=== PATIENT | male | born 1995 | race Caucasian/White ===

== ENCOUNTER 2016-03-08 13:16 | Emergency (ER) | payer OTHER ==
[~2016-03-08 13:16] MED LIST: CLIN1CAP5 PO; ZOFR4TAB3 SL
[2016-03-08 13:32] VITALS: BP 117/55; PULSE 86; TEMP 97.9; O2SAT 99
[2016-03-08 14:15] VITALS: BP 124/76; PULSE 80; RESP 18; O2SAT 98
--- NOTE | 2016-03-08 14:22 | PD ---
HPI Chief Complaint: Syncope/Near-Syncope Time Seen by Provider: 14:19 Travel History International Travel<30 days: No Contact w/Intl Traveler<30days: No Traveled to known affect area: No History of Present Illness HPI Patient is a 20-year-old male who presents emergency Department were evaluation of a syncopal episode. 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 Patient states he was only out for a few seconds. He does endorse vomiting prior to passing out. He denies any shortness of breath or chest pain prior to the syncopal episode. He denies any headaches, nausea, chest pain, shortness of breath, abdominal pain, cramping. PFSH Past Medical History Blood Disorders: No Anxiety: No Depression: No Cardiovascular Problems: Yes (heart murmur followed by pcp) Diminished Hearing: No Gastrointestinal Disorders: No Immunizations Current: Yes ?: Not Past Surgical History Other Surgery: Yes (bilateral meniscus repair) Social History Alcohol Use: Yes (OCCAS) Tobacco Use: No Substance Use: No Allergies-Medications (Allergen,Severity, Reaction): Coded Allergies: Vancomycin (Verified Allergy, Severe, ITCHING, 03/08/16) Reported Meds & Prescriptions Reported Meds & Active Scripts Active Zofran ODT (Ondansetron HCl) 4 Mg Tab 4 Mg SL Q6H PRN FOR NAUSEA/VOMITING Clindamycin Hcl (Clindamycin HCl) 150 Mg Cap 300 Mg PO TID 10 Days Review of Systems Except as stated in HPI: all other systems reviewed are Neg Physical Exam Narrative GENERAL: Well-developed, well-nourished, alert male. Resting comfortably in no acute distress. SKIN: Warm and dry. HEAD: Atraumatic. Normocephalic. EYES: Pupils equal and round. No scleral icterus. No injection or drainage. ENT: No nasal bleeding or discharge. Mucous membranes pink and moist. NECK: Trachea midline. No JVD. CARDIOVASCULAR: Regular rate and rhythm. No murmur appreciated. RESPIRATORY: No accessory muscle use. Clear to auscultation. Breath sounds equal bilaterally. GASTROINTESTINAL: Abdomen soft, non-tender, nondistended. Hepatic and splenic margins not palpable. MUSCULOSKELETAL: No obvious deformities. No clubbing. No cyanosis. No edema. NEUROLOGICAL: Awake and alert. No obvious cranial nerve deficits. Motor grossly within normal limits. Normal speech. PSYCHIATRIC: Appropriate mood and affect; insight and judgment normal. Data Data Last Documented VS Vital Signs Date Time Temp Pulse Resp B/P Pulse Ox O2 Delivery O2 Flow Rate FiO2 03/08/16 16:09 58 16 110/51 99 Room Air 03/08/16 13:32 97.9 Orders Electrocardiogram (03/08/16 ) Complete Blood Count With Diff (03/08/16 13:30) Comprehensive Metabolic Panel (03/08/16 13:30) Urinalysis - C+S If Indicated (03/08/16 13:30) Sodium Chlor 0.9% 1000 Ml Inj (Ns 1000 M (03/08/16 14:30) Urine Culture (03/08/16 14:09) Labs Laboratory Tests Test 03/08/16 03/08/16 03/08/16 14:09 14:12 16:30 Urine Color YELLOW Urine Turbidity HAZY Urine pH 5.5 Urine Specific [place] 1.018 Urine Protein 30 mg/dL Urine Glucose (UA) NEG mg/dL Urine Ketones TRACE mg/dL Urine Occult Blood SMALL Urine Nitrite NEG Urine Bilirubin NEG Urine Urobilinogen LESS THAN 2.0 MG/DL Urine Leukocyte Esterase NEG Urine RBC 2 /hpf Urine WBC 3 /hpf Urine Squamous Epithelial 1 /hpf Cells Urine Hyaline Casts 56 /lpf Urine Mucus FEW /lpf Microscopic Urinalysis Comment CULTURE INDICATED White Blood Count 13.7 TH/MM3 Red Blood Count 5.11 MIL/MM3 Hemoglobin 14.9 GM/DL Hematocrit 44.1 % Mean Corpuscular Volume 86.3 FL Mean Corpuscular Hemoglobin 29.2 PG Mean Corpuscular Hemoglobin 33.8 % Concent Red Cell Distribution Width 12.5 % Platelet Count 205 TH/MM3 Mean Platelet Volume 8.5 FL Neutrophils (%) (Auto) 84.9 % Lymphocytes (%) (Auto) 9.0 % Monocytes (%) (Auto) 5.4 % Eosinophils (%) (Auto) 0.3 % Basophils (%) (Auto) 0.4 % Neutrophils # (Auto) 11.6 TH/MM3 Lymphocytes # (Auto) 1.2 TH/MM3 Monocytes # (Auto) 0.7 TH/MM3 Eosinophils # (Auto) 0.0 TH/MM3 Basophils # (Auto) 0.1 TH/MM3 CBC Comment AUTO DIFF Differential Comment AUTO DIFF CONFIRMED Sodium Level 144 MEQ/L Potassium Level 4.2 MEQ/L Chloride Level 111 MEQ/L Carbon Dioxide Level 25.7 MEQ/L Anion Gap 7 MEQ/L Blood Urea Nitrogen 11 MG/DL Creatinine 0.94 MG/DL Estimat Glomerular Filtration 101 ML/MIN Rate Random Glucose 84 MG/DL Calcium Level 8.6 MG/DL Total Bilirubin 0.5 MG/DL Aspartate Amino Transf 13 U/L (AST/SGOT) Alanine Aminotransferase 25 U/L (ALT/SGPT) Alkaline Phosphatase 44 U/L Total Protein 7.0 GM/DL Albumin 4.1 GM/DL MDM Medical Decision Making Medical Screen Exam Complete: Yes Emergency Medical Condition: Yes Interpretation(s) Vital Signs Date Time Temp Pulse Resp B/P Pulse Ox O2 Delivery O2 Flow Rate FiO2 03/08/16 14:15 80 18 124/76 98 Room Air 03/08/16 14:15 78 20 98 Room Air 03/08/16 13:32 97.9 86 117/55 99 Differential Diagnosis Heat exhaustion versus vasovagal episode versus cardiac arrhythmia versus dehydration versus electrolyte abnormality versus other Narrative Course Patient is a 20-year-old male who presented to emergency department for evaluation after syncopal episode while 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 Patient appears well, his vital signs are stable, he is alert. Labs ordered and pending. EKG shows sinus rhythm with sinus arrhythmia, this is consistent with patient's history. CBC, chemistry unremarkable, urinalysis with trace ketones, small amount of occult blood. Urine culture is pending. We will defer treatment until culture results as patient is asymptomatic. He is vital signs are stable, he received 1 L of normal saline IV. He is neurologically intact. Patient is encouraged to follow-up with his primary doctor, maintain adequate fluid intake, return to emergency department for any new or worsening symptoms. Patient verbalized understanding of these instructions. Patient is stable for discharge. Diagnosis Primary Impression: Syncope Qualified Code: R55 - Syncope, unspecified syncope type Referrals: Primary Care Physician 2 days Patient Instructions: General Instructions, Syncope (ED) Additional Instructions: Follow-up with your primary doctor Maintain adequate fluid intake Return to emergency department for any new or worsening symptoms Med/Other Pt SpecificInfo: No Change to Meds Disposition: 01 DISCHARGE HOME Condition: Stable Mary [place] Mar 08, 2016 14:22
[2016-03-08] MEDS ORDERED: SODIUM CHLOR 0.9% 1000 ML INJ 1,000 ML IV ONE (14:30)
[2016-03-08 14:38] LABS: AUTOMATED NEUTROPHIL # 11.6 TH/MM3 (1.8-7.7); BASOPHIL # 0.1 TH/MM3 (0-0.2); BASOPHIL % 0.4 % (0.0-2.0); EOSINOPHIL % 0.3 % (0.0-4.0); HEMATOCRIT 44.1 % (39.0-51.0); LYMPHOCYTE # 1.2 TH/MM3 (1.0-4.8); MEAN CELL VOLUME 86.3 FL (80.0-100.0); MEAN CORPUSCULAR HEMOGLOBIN 29.2 PG (27.0-34.0); MEAN CORPUSCULAR HGB CONC 33.8 % (32.0-36.0); MONO % 5.4 % (0.0-8.0); NEUT % 84.9 % (16.0-70.0); PLATELET COUNT 205 TH/MM3 (150-450); RED BLOOD COUNT 5.11 MIL/MM3 (4.50-5.90); RED CELL DISTRIBUTION WIDTH 12.5 % (11.6-17.2); WHITE BLOOD COUNT 13.7 TH/MM3 (4.0-11.0)
[2016-03-08 14:40] LABS: HEMO FLAGS AUTO DIFF
[2016-03-08 14:46] LABS: BLOOD, URINE SMALL (NEG); COMMENT (UR) CULTURE INDICATED; CULTURE IF INDICATED CULTURE INDICATED; GLUCOSE,URINE NEG (NEG); HYALINE CAST, URINE 56 /lpf (RARE); KETONE, URINE TRACE mg/dL (NEG); MUCUS URINE FEW /lpf (OCC); NITRITE,URINE NEG (NEG); PH, URINE 5.5 (5.0-8.5); SQUAMOUS EPITHELIAL CELL URINE 1 /hpf (0-5); URINE COLOR YELLOW (YELLW/STRAW)
[2016-03-08 15:18] LABS: SCAN/DIFF AUTO DIFF CONFIRMED
[2016-03-08 16:09] VITALS: BP 110/51; PULSE 58; RESP 16; O2SAT 99
[2016-03-08 17:08] LABS: ALT (GPT) 25 U/L (12-78); ANION GAP 7 MEQ/L (5-15); AST (GOT) 13 U/L (15-37); BICARBONATE 25.7 MEQ/L (21.0-32.0); BLOOD UREA NITROGEN 11 MG/DL (7-18); CHLORIDE 111 MEQ/L (98-107); GLOMERULAR FILTRATION RATE 101 ML/MIN (>89); POTASSIUM 4.2 MEQ/L (3.5-5.1); SODIUM (NA) 144 MEQ/L (136-145)
[2016-03-08 17:10] VITALS: BP 114/67
[2016-03-08 17:10] LABS: ALKALINE PHOSPHATASE 44 U/L (45-117); TOTAL BILIRUBIN ADULT 0.5 MG/DL (0.2-1.0)
--- NOTE | 2016-03-09 21:20 | EKG ---
Date Performed: 03/08/2016 Time Performed: 12:58:38 PTAGE: 20 years EKG: Sinus rhythm WITH MARKED SINUS ARRHYTHMIA POSSIBLE LEFT ATRIAL ENLARGEMENT BORDERLINE ECG NO PREVIOUS TRACING DOCTOR: Imer Sepulveda Interpretating Date/Time 03/09/2016 21:10:40
== END 2016-03-08 17:52 | disposition home or self-care (01) ==
LOC: NEDAMB 13:16
DX: R55 Syncope and collapse (principal); R01.1 Cardiac murmur, unspecified; I49.8 Other specified cardiac arrhythmias; R82.90 Unspecified abnormal findings in urine
CPT/HCPCS: 80053; 81001; 85025; 87086; 93005; 96360; 99284; J7030

== ENCOUNTER 2016-07-07 10:12 | Day surgery (SDC) | payer OTHER ==
[~2016-07-07] VITALS: Ht 177.8 cm; Wt 85.7 kg
[2016-07-07] MEDS ORDERED: POVIDONE IODINE 5% (ANTISEPSIS KIT) 4 APPLICATIONS EACH NARE SCH (10:30)
[2016-07-07] MEDS ORDERED: NO Heparin, Lovenox, Coumadin at least 12 hours prior to procedure. PRN (10:30)
[2016-07-07] MEDS ORDERED: NS 1000 ML IV SCH (10:30)
[2016-07-07] MEDS ORDERED: Hold AM Insulin & AM Hypoglycemic medications in diabetic patients PRN (10:30)
[2016-07-07] MEDS ORDERED: CHLORHEXIDINE GLUCONATE 2 % 1 PACK (2 CLOTHS) TOPICAL SCH (10:30)
[2016-07-07 10:43] VITALS: BP 121/56; PULSE 68; RESP 18; TEMP 99.2; O2SAT 100
[2016-07-07] MEDS ORDERED: INSULIN HUMAN REGULAR 1,000 UNITS/10 ML VIAL SQ PRN (10:45)
[2016-07-07] MEDS ORDERED: CHLORHEXIDINE GLUCONATE 2 % 1 PACK (2 CLOTHS) TOPICAL PRN (10:45)
[2016-07-07] MEDS ORDERED: METOPROLOL TARTRATE 25 MG TAB PO PRN (10:45)
[2016-07-07] MEDS ORDERED: LACTATED RINGER'S 1000 ML IV PRN (10:45)
[2016-07-07] MEDS ORDERED: SODIUM CHLORID 0.9% 500 ML IV PRN (10:45)
[2016-07-07] MEDS ORDERED: POVIDONE IODINE 5% (ANTISEPSIS KIT) 4 APPLICATIONS EACH NARE PRN (10:45)
[2016-07-07 10:51] LABS: AUTOMATED NEUTROPHIL # 2.4 TH/MM3 (1.8-7.7); BASOPHIL % 0.6 % (0.0-2.0); EOSINOPHIL # 0.2 TH/MM3 (0-0.4); EOSINOPHIL % 4.3 % (0.0-4.0); HEMO FLAGS DIFF FINAL; LYMPH % 38.9 % (9.0-44.0); LYMPHOCYTE # 2.1 TH/MM3 (1.0-4.8); MEAN CORPUSCULAR HEMOGLOBIN 28.7 PG (27.0-34.0); MEAN CORPUSCULAR HGB CONC 33.3 % (32.0-36.0); MONO % 11.8 % (0.0-8.0); NEUT % 44.4 % (16.0-70.0); PLATELET COUNT 197 TH/MM3 (150-450); RED BLOOD COUNT 5.12 MIL/MM3 (4.50-5.90); RED CELL DISTRIBUTION WIDTH 12.5 % (11.6-17.2); WHITE BLOOD COUNT 5.4 TH/MM3 (4.0-11.0)
[2016-07-07 11:01] LABS: APTT (PATIENT) 29.1 SEC (24.3-30.1); PROTHROMBIN TIME - PATIENT 10.8 SEC (9.8-11.6)
[2016-07-07 11:14] LABS: BICARBONATE 29.2 MEQ/L (21.0-32.0)
[2016-07-07] MEDS ORDERED: ISOPROTERENOL HCL 1 MG/5 ML AMP ONE (12:52)
--- NOTE | 2016-07-07 13:37 | CATHPROC ---
[facility] Report Study Information Study Number Scheduled Start Study Start [id number] 07/07/2016 Jul 07 2016 12:50PM Referring Institution Admit Source Facility Department 1 Other [facility] - Engine Room Operator Physician and Clinical Staff Initial Latoya Phipps Mold Tooling Technician Michelle Abdul,WHARF LABORER TECH2 Other Anesthesia, NETWORK SECURITY ADMINISTRATOR Recorder Zainab Vizcaino,JASPAL Scrub Prema Krishna,RT(R) TECH2 Equipment Time Fraud Representative Description Size Mfg Part Number Used/Scraped [id number] 12:56 [employer] PACK, CCL CUSTOM * Used *[id number] 12:56 MEDLINE PACER EUBANKS, LIMB * 2530 Used [id number] 12:56 [employer],WARM AIR CCL * Used *[id number] 12:57 [employer] MED[employer] CATHETER, JSN, QUAD FR 5 Used *[id number] 12:57 [employer] MED[employer] CATHETER, JSN, QUAD FR 5 Used *[id number] 12:57 [employer] CATHETER, JSN, QUAD FR 5 Used *[id number] 12:57 [employer] MED[employer] CATHETER, JSN, QUAD FR 5 Used *[id number] 12:56 [employer] MED[employer] SHEATH, EPS, FR5 FAST CATH FR 5 Used *[id number] 12:56 [employer] SHEATH, EPS, FR5 FAST CATH FR 5 Used *[id number] 12:56 [employer] SHEATH, EPS, FR5 FAST CATH FR 5 Used *[id number] 12:56 [employer] MED[employer] SHEATH, EPS, FR6 FAST CATH FR 6 [id number] Used History: Risk Factors Family History of Hypertension Dyslipidemia Previous AL Previous Heart Failure Premature CAD No No No No No Prior Valve Prior PCI Prior CABG Surgery No No No Cerebrovascular Peripheral Artery Chronic Lung On Dialysis Diabetes Disease Disease Disease No No No No No Medication Medication Total Dose (Bolus/Oral) Medication Total Dosage/Unit 1% XYLOCAINE 20 mL Medications (Bolus/Oral) Medication Time Given Dosage/Unit Administered By Reason 1% XYLOCAINE 07/07/2016 1:07:23 PM 20 mL Latoya Weaver 20 mL 1% XYLOCAINE given in lab by Latoya Weaver in Right Groin via Subcutaneous. Medication (Drip) Medication Time Given Dosage/Unit Concentration/Unit Diluent (ml) Solution ISUPREL 07/07/2016 1:22:05 PM 4 mcg/min 1 mg 250 NaCl .9 4 mcg/min ISUPREL given in lab by Latoya Weaver in Right Antecubital via Peripheral IV. Pump/Drip Wilfrid w = 60 ml/hr using NaCl .9 with a concentration of 1 mg in 250 ml. Initial Case Assessment Cardiovascular HR Rhythm NIBP Chest Pain 61 SR 121/67 0 Edema Present Skin color Skin None Normal Warm Dry Circulatory - Right Pulses Dorsalis Pedis 2 Scale (0,1,2,3,4,d) Circulatory - Left Pulses Dorsalis Pedis 2 Scale (0,1,2,3,4,d) Neurological State Oriented to time-place- Alert Moves all extremities person Respiration - General Respiration Rate SpO2 (%) (B/min) 18 100 Chronological Log Time Study Chronological Log 12:30:00 Patient arrived via Bed. 12:30:01 Patient Name, D.O.B, / Armband Verified By R.N. Verbal Stimulation=~VERBAL~ Physical Stimulation=~PHYSICAL~ Airway=~AIRWAY~ Respiration=~RESPIR ATION~ 12:31:00 TOTAL=~TOTAL~. (0=absent, 1=limited, 2=present) 12:35:00 Patient has been NPO for More than 6Hrs. 12:35:00 Skin Breakdown- none per patient 12:35:00 Lizzy Prominences Protected 12:35:20 IV Warmer Connected To Patient. 12:36:00 Disposable Defibrillator Pads Placed On Patient. 12:40:12 Anesthesia at bedside. Assumes care of patient. 12:51:12 A # 20 IV was noted in the Antecubital (left). Grade = 0 12:51:21 A # 20 IV was noted in the Antecubital (right). Grade = 0 12:51:28 History and physical on the chart or being dictated. Assessment: Initial Case, HR=61 BPM, Rhythm=SR, YQOP=538/67 mmhg, Chest Pain=0, Edema=None, Col or=Normal, Skin = Warm, Dry Right Pulses: Trevor Ped=2 12:51:30 Left Pulses: Trevor Ped=2 Neurological: State=Alert, Ox3, MUNOZ Respiration: Resp=18 B/min, DpQ1=442 % 12:52:06 Table restraints applied according to hospital policy 12:52:07 Bilateral groins prepped with 2% chlorhexidine, and with a 3 min. waiting time. 12:52:10 paged 12:55:20 MD responded 12:55:27 Reference ECG taken Time Out. Correct patient, procedure, procedure equipment, site and side verified with physicia n present. Time 13:03:37 concurred by MD, individual staff and NETWORK SECURITY ADMINISTRATOR. Time Out #2 - Consents verified, patient in correct position, all results are labled and displa yed, safety precautions 13:03:42 taken, antibiotics administered. Time out concurred by MD, individual staff and NETWORK SECURITY ADMINISTRATOR in procedu re 13:04:48 Case Start 13:07:23 20 mL 1% XYLOCAINE given in lab by Latoya Weaver in Right Groin via Subcutaneous. 13:07:36 Vascular access was obtained in the Fem Vein (right). 13:07:40 Vascular access was obtained in the Fem Vein (right). 13:07:41 Vascular access was obtained in the Fem Vein (right). 13:07:41 Vascular access was obtained in the Fem Vein (right). 13:08:09 A SHEATH, EPS, FR5 FAST CATH FR 5 was advanced into the Fem Vein (right) using the Modified Seldinger technique. 13:08:18 A SHEATH, EPS, FR5 FAST CATH FR 5 was advanced into the Fem Vein (right) using the Modified Seldinger technique. 13:08:22 A SHEATH, EPS, FR5 FAST CATH FR 5 was advanced into the Fem Vein (right) using the Modified Seldinger technique. 13:08:25 A SHEATH, EPS, FR6 FAST CATH FR 6 was advanced into the Fem Vein (right) using the Modified Seldinger technique. A CATHETER, JSN, QUAD FR 5 was advanced vis Fem Vein (right) and placed in the CS. Placement wa s visually 13:09:39 confirmed under fluoroscopy. A CATHETER, JSN, QUAD FR 5 was advanced vis Fem Vein (right) and placed in the HIS. Placement w as visually 13:09:57 confirmed under fluoroscopy. A CATHETER, JSN, QUAD FR 5 was advanced vis Fem Vein (right) and placed in the HRA. Placement w as visually 13:10:02 confirmed under fluoroscopy. A CATHETER, JSN, QUAD FR 5 was advanced vis Fem Vein (right) and placed in the RVA. Placement w as visually 13:10:08 confirmed under fluoroscopy. 4 mcg/min ISUPREL given in lab by Latoya Weaver in Right Antecubital via Peripheral IV. Pump/Dr ip Flow = 60 ml/hr 13:22:05 using NaCl .9 with a concentration of 1 mg in 250 ml. 13:32:50 d/c isuprel 13:33:01 Catheter(s) removed without difficulty 13:34:00 Case End Sheath removed; pressure applied to access site. x 10 min patient tolerated well no s/sx of bl eeding or hematoma upon 13:35:18 delivery to docu 13:36:07 Sterile dressing applied to site 13:36:08 No case complications noted. 13:36:09 Cine recording checked. 13:36:10 Bedside Report will be given. 13:36:14 docu called. Spoke to Lulu 13:36:24 Defibrillator and ground pads removed. Skin intact. 13:46:25 [facility] Study - Contrast Media Used In Study Contrast Total Opened (mL) Total Used (mL) Total Wasted (mL) Unspecified 0 0 0 End Study - Radiation Exposure Fluoro Time (minutes) 1.8 End Study - Patient Disposition Complications Transferred To Interventional Outcome No Telemetry Bed successful
[2016-07-07] MEDS ORDERED: MIDAZOLAM HCL 2 MG/2 ML VIAL ONE (13:44)
[2016-07-07] MEDS ORDERED: PROPOFOL 200 MG/20 ML AMP IV PUSH ONE (13:45)
[2016-07-07] MEDS ORDERED: METOPROLOL TARTRATE 5 MG/5 ML VIAL ONE (13:53)
[2016-07-07] MEDS ORDERED: METOCLOPRAMIDE HCL 10 MG/2 ML VIAL IV PRN (14:00)
[2016-07-07] MEDS ORDERED: ONDANSETRON HCL 4 MG/2 ML VIAL IV PRN (14:00)
[2016-07-07] MEDS ORDERED: SODIUM CHLOR 0.9% 250 ML INJ 250 ML IV PRN (14:00)
[2016-07-07] MEDS ORDERED: ATROPINE SULFATE 1 MG/ML VIAL IV PRN (14:00)
[2016-07-07] MEDS ORDERED: LIDOCAINE HCL 1% 50 ML VIAL INFIL PRN (14:00)
[2016-07-07] MEDS ORDERED: oxyCODONE/ACETAMINOPHEN 5 MG/325 MG TAB PO PRN ×2 (14:00)
[2016-07-07] MEDS ORDERED: BACITRACIN OINT 0.9 GM PKT TOP ONE (14:00)
[2016-07-07] MEDS ORDERED: LORazepam 2 MG/ML VIAL IV PRN (14:00)
[2016-07-07] MEDS ORDERED: NO HOME MEDICATIONS (14:47)
--- NOTE | 2016-07-07 15:50 | MA ---
cc: REGINO GARCIA M.D. DATE: 07/07/2016 TYPE OF PROCEDURE: Electrophysiology study, CS cannulation repeated electrophysiology study on Isuprel infusion. 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 The risks, the nature and the benefit of the procedure are clearly stated to him. The risks include pneumothorax, cardiac perforation, stroke, need for open heart surgery and even . The patient understood and agreed to proceed. PROCEDURE After written informed consent was obtained, the patient was brought to the EP lab where he was prepped and draped in the usual sterile fashion. Conscious sedation was initiated and throughout the procedure by anesthesiologist. Once sedation verified, the right inguinal area was anesthetized with 2% Xylocaine. Using modified Seldinger technique, the right femoral vein was cannulated on four occasions, four guidewires were advanced. Over the wires three 5, and a 6-Vincentian Hemaquet were advanced. Then under fluoroscopic guidance through the 5 and 6-Vincentian Hemaquet, four 5-Vincentian Cesar curved quadripolar electrophysiology catheters were advanced and was on the his upper right atrium coronary sinus and right ventricular apex. Basic interval was measured. They were within normal limits. At this point atrial pacing protocol was performed for atrial pacing protocol course of incremental atrial pacing as well as program stimulation with 110 cycle length and up to one excess stimuli delivered. No tachyarrhythmia was induced. Sinus node recovery time were within normal limits. Pacing from the coronary sinus showed no pre-excitation. Then ventricular pacing protocol was performed. There was no VA conduction. Ventricular pacing protocol course of incremental ventricular pacing as well as program stimulation with 110 cycle length and up to one excess stimuli delivered. No tachyarrhythmia was induced. Then Isuprel infusion was initiated atrial and ventricular pacing protocol was performed. No tachyarrhythmia was induced. There was VA conduction on Isuprel. At that point a Isuprel was discontinued. No tachyarrhythmia was induced post Isuprel infusion. At that point procedure was complete. All catheters were removed. The patient going to be transferred to recovery room. No incident report. The patient tolerated procedure blood loss minimal. 1. Electrocardiogram at baseline the patient was in sinus postprocedure electrocardiogram was unchanged. 2. Basic interval base cycle length was around 900 milliseconds AH at 90 and HV around 46 milliseconds. 3. Atrial pacing protocol Wenckebach of the node was around 350 milliseconds. ERP of the node 600-260 milliseconds. At baseline. No tachyarrhythmia was induced. 4. Ventricular pacing protocol there was no VA at baseline. There was VA on Isuprel no tachyarrhythmia was induced. CONCLUSION Negative electrophysiology study for supraventricular tachyarrhythmia. COMMENT/RECOMMENDATIONS: At this point there is no need for loop recorder. If the patient has another episode then that option will be considered. He is a young man, he has syncopal episode on activity. Apparently there was a EMS tech present at the scene. There is no significant tachyarrhythmia recorded. No history of sudden , normal QT in no significant left ventricular hypertrophy. 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 I will see him in my office for followup. MD ДМИТРИЙ Persaud/nicholas /1:50 PM /3:40 PM
--- NOTE | 2016-07-08 16:13 | EKG ---
Date Performed: 07/07/2016 Time Performed: 10:48:22 PTAGE: 21 years EKG: Sinus bradycardia with sinus arrhythmia Normal ECG except for rate PREVIOUS TRACING : 03/08/2016 12.58 Compared to prior tracing no significant change DOCTOR: Alba Asher Interpretating Date/Time 07/08/2016 16:11:45
== END 2016-07-07 16:40 | disposition home or self-care (01) ==
LOC: HDOC 10:12 → HDIC 10:12 → HDOC 16:40
PROVIDERS: ATTEND Internal Medicine Interventional Cardiology
DX: R55 Syncope and collapse (principal)
CPT/HCPCS: 00537; 80048; 85025; 85610; 85730; 86850; 86900; 86901; 93005; 93620; 93623; C1730; J2250; J3010